=== PATIENT | female | born 1940 | race Caucasian/White ===

== ENCOUNTER 2017-04-09 13:43 | Outpatient (CLI) | payer MEDICARE | END 2017-04-09 13:44 | disposition home or self-care (01) | LOC: BICULT 13:43 | PROVIDERS: ATTEND Obstetrics & Gynecology | DX: E05.10 Thyrotoxicosis with toxic single thyroid nodule without thyrotoxic crisis or storm (principal); R94.6 Abnormal results of thyroid function studies | CPT/HCPCS: 76536 ==

== ENCOUNTER 2017-04-25 08:16 | Day surgery (SDC) | payer MEDICARE ==
[2017-04-24 13:34] VITALS: BMI 24.3
[~2017-04-25 08:16] MED LIST: FLU VACC TS2017-18 (>65YR) 0.5 ML SYRINGE IM ONE
[2017-04-25] MEDS ORDERED: Lidocaine 1% PF 5 ML VIAL ONE (08:31)
[2017-04-25] MEDS ORDERED: Sodium Bicarbonate 2.4 MEQ/5 ML ONE (08:31)
[2017-04-25 10:31] VITALS: BP 158/70; TEMP 97.9
--- NOTE | 2017-04-25 11:19 | ULT ---
ULTRASOUND GUIDED BIOPSY THYROID: DATE: 04/25/17. HISTORY: A 77-year-old female with mixed solid and cystic thyroid nodule in the left lobe (predominantly solid ). Detailed description is given on the report of the thyroid gland of 04/09/17 from [facility] (formerly [facility]). TECHNIQUE: Signed informed consent obtained. The skin of the left anterior lower neck was prepped and draped in the usual sterile fashion. A 25-gauge needle was used to apply buffered Lidocaine superficially, th en under ultrasound guidance, deeply. A total of 4 separate 25-gauge needles were mounted on 4 separ ate 10 mL syringes, mounted on the [employer] biopsy gun. Four separate passes were made under ultr asound guidance into the left dominant thyroid nodule, and given to the technologist from pathology. The patient tolerated the procedure well. No complications. IMPRESSION: Technically successful 25-gauge fine needle aspiration biopsy of left thyroid mass x 4. POS: [facility]
== END 2017-04-25 10:00 | disposition home or self-care (01) ==
LOC: ULT 08:16
PROVIDERS: ATTEND Internal Medicine Endocrinology, Diabetes & Metabolism
DX: E05.10 Thyrotoxicosis with toxic single thyroid nodule without thyrotoxic crisis or storm (principal); I10 Essential (primary) hypertension; E78.5 Hyperlipidemia, unspecified; Z85.3 Personal history of malignant neoplasm of breast; Z79.899 Other long term (current) drug therapy; Z98.890 Other specified postprocedural states
CPT/HCPCS: 10022; 76942; 88173; 88305; J2001

== ENCOUNTER 2017-11-20 08:54 | Outpatient (CLI) | payer MEDICARE | END 2017-11-20 08:55 | disposition home or self-care (01) | LOC: BICULT 08:54 | PROVIDERS: ATTEND Internal Medicine Endocrinology, Diabetes & Metabolism | DX: E04.9 Nontoxic goiter, unspecified (principal); E05.10 Thyrotoxicosis with toxic single thyroid nodule without thyrotoxic crisis or storm; R94.6 Abnormal results of thyroid function studies; E04.1 Nontoxic single thyroid nodule | CPT/HCPCS: 76536 ==

== ENCOUNTER 2018-06-27 10:18 | Outpatient (CLI) | payer MEDICARE ==
--- NOTE | 2018-06-27 12:19 | ULT ---
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 That is the diagnosis given in the order. However, according to the patient, the ultrasound is being performed for left thyroid nodule. Comparison: None. FINDINGS: Isthmus: 0.3 cm AP Right lobe: 2.9 x 1.1 x 1.1 cm Left lobe: 5.2 x 3.3 x 2.5 cm At the lower pole of the right lobe, there is a solid nodule measuring 0.7 x 1.0 x 0.7 cm. It contain s large, coarse calcifications. Composition: Completely solid 2 points Echogenicity: Mildly hyperechoic 1 point Shape: Wider than tall 0 points Margin: Smooth 0 points Echogenic foci: Macrocalcifications 1 point Total points: 4 TIRADS category 4, moderately suspicious. (RECOMMENDATION: FNA if greater than or equal to 1.5 cm. Follow up if greater than or equal to 1 cm, at 1, 2, 3, and 5 years). Centered in the left midpole, there is a much larger nodule dominating the left lobe. Composition: Mixed cystic and solid 1 point Echogenicity: Isoechoic 1 point Shape: Wider than tall 0 points Margin: Smooth 0 points Echogenic foci: None 0 points Total points: 2 TIRADS category 2 - not suspicious. No fine needle aspiration recommended. IMPRESSION: 1) A small 1 cm right lower pole thyroid nodule, TIRADS category 4 - moderately suspicious. Recommend serial follow up thyroid ultrasounds at 1, 2, 3, and 5 years. 2) Much larger left thyroid nodule, which is a TIRADS category 2, not suspicious. However, the order states thyrotoxicosis. If that is not an error, then this left lobe nodule would be suspicious for an autonomous, hyperfunctioning thyroid nodule. Recommend clinical correlation. POS: [facility]
== END 2018-06-27 10:19 | disposition home or self-care (01) ==
LOC: BICULT 10:18
PROVIDERS: ATTEND Internal Medicine Endocrinology, Diabetes & Metabolism
DX: E05.00 Thyrotoxicosis with diffuse goiter without thyrotoxic crisis or storm (principal); E04.2 Nontoxic multinodular goiter
CPT/HCPCS: 76536

== ENCOUNTER 2019-07-14 12:16 | Outpatient (CLI) | payer MEDICARE ==
--- NOTE | 2019-07-14 13:37 | ULT ---
Thyroid sonogram HISTORY: Goiter. Follow-up. COMPARISON: 06/27/2018. FINDINGS: Right thyroid lobe measures up to 3.1 cm. Heterogeneous echotexture. At the inferior pole, a heterogeneous oval predominantly isoechoic nodule containing an eccentric calcification is 1.0 x 1.0 x 1.7 cm greatest diameters. Unchanged in appearance from the prior study. Isthmus is 0.3 cm. Left thyroid lobe measures up to 5.9 cm. The oval heterogeneous partially cystic nodule at the inferi or pole remains well-circumscribed. It is 3.5 x 3.0 x 2.4 cm greatest diameters on the current exam. Unchanged appearance. IMPRESSION: Stable sonographic appearance of the small right and larger left thyroid nodules, as deta iled above. No new abnormalities are demonstrated.
== END 2019-07-14 12:17 | disposition home or self-care (01) ==
LOC: BICULT 12:16
PROVIDERS: ATTEND Internal Medicine Endocrinology, Diabetes & Metabolism
DX: E04.2 Nontoxic multinodular goiter (principal)
CPT/HCPCS: 76536